=== PATIENT | female | born 1990 | race Caucasian/White ===

== ENCOUNTER 2018-11-18 20:57 | Emergency (ER) | payer OTHER ==
[2018-11-18 21:02] VITALS: BP 109/51; PULSE 69; TEMP 98.4; BMI 26.5
--- NOTE | 2018-11-18 21:44 | PDOC ---
History of Present Illness - General Chief Complaint: Urinary Problem Stated Complaint: UTI Time Seen by Provider: 11/18/18 21:10 - History of Present Illness Initial Comments: 11/18/18 21:43 28-year-old female with dysuria times one week no systemic symptoms Past History - Past Medical History Allergies/Adverse Reactions: Allergies Allergy/AdvReac Type Severity Reaction Status Date / Time No Known Allergies Allergy Verified 11/18/18 21:02 Home Medications: Ambulatory Orders Metronidazole [Flagyl] 500 mg PO BID #14 tablet 08/16/14 Metronidazole [Flagyl] 500 mg PO BID #14 tablet 08/16/14 Ondansetron [Zofran Odt -] 4 mg SL TID #10 od.tablet 08/16/14 Cephalexin [Keflex] 500 mg PO TID 5 Days #15 capsule 11/18/18 COPD: No - Suicide/Smoking/Psychosocial Hx Smoking History: Never smoked Hx Alcohol Use: No Drug/Substance Use Hx: No Substance Use Type: None Review of Systems - Review of Systems Constitutional: No: Fever : Yes: Dysuria *Physical Exam - Vital Signs Last Vital Signs Temp Pulse Resp BP Pulse Ox 98.4 F 69 18 109/51 L 99 11/18/18 20:59 11/18/18 20:59 11/18/18 20:59 11/18/18 20:59 11/18/18 20:59 - Physical Exam Comments: 11/18/18 21:43 HEAD: NC/AT EYES: Conjuntiva clear MS: Full ROM in all joints without edema NEUROLOGIC: No gross sensory or motor deficits, NVID SKIN: Normal color and temperature no lesions or rashes Medical Decision Making - Medical Decision Making 11/18/18 21:59 keflex for UTI *DC/Admit/Observation/Transfer Diagnosis at time of Disposition: UTI (urinary tract infection) - Discharge Dispostion Disposition: HOME Condition at time of disposition: Stable Decision to Admit order: No - Prescriptions Prescriptions: Cephalexin [Keflex] 500 mg PO TID 5 Days #15 capsule - Referrals Referrals: Adis Li MD [Staff Physician] - - Patient Instructions Printed Discharge Instructions: Urinary Tract Infection, DI for Urinary Tract Infection (UTI) Additional Instructions: Return to the emergency room for worsening symptoms. Please take the antibiotics as directed. Follow-up with her - Post Discharge Activity
[2018-11-18 21:52] LABS: EPI CELLS 5.7 /HPF (0-5/HPF); HYALINE CASTS 21 /lpf (0-8); URINE APPEARANCE CLOUDY; URINE BACTERIA 145.5 /hpf (NEGATIVE); URINE BILIRUBIN NEGATIVE (NEGATIVE); URINE COLOR YELLOW; URINE GLUCOSE (UA) NEGATIVE (NEGATIVE); URINE KETONE NEGATIVE (NEGATIVE); URINE LEUK ESTERASE TRACE (NEGATIVE); URINE NITRITE NEGATIVE (NEGATIVE); URINE PROTEIN TRACE (NEGATIVE); URINE WBC 27 /hpf (0-5)
[2018-11-18 21:53] LABS: HCG,QUALITATIVE URINE Negative
[2018-11-18 23:20] LABS: URINE RBC 13.3 /hpf (0-4)
[2018-11-21] MEDS ORDERED: FUROSEMIDE 40 MG/4 ML INJECTABLE VIAL ONE (13:13)
== END 2018-11-18 22:09 | disposition home or self-care (01) ==
LOC: JERFT 20:57
DX: N39.0 Urinary tract infection, site not specified (principal)
CPT/HCPCS: 81003; 84703; 87086; 99281-25

== ENCOUNTER 2020-11-23 21:30 | Emergency (ER) | payer OTHER ==
[2020-11-23 21:35] VITALS: BP 120/62; PULSE 88; TEMP 97.8; BMI 24.7
[2020-11-23] MEDS ORDERED: ERYTHROMYCIN 0.5% OPHTHALMIC OINTMENT 3.5 GM TUBE ONE (22:13)
[2020-11-23] MEDS ORDERED: FLUORESCEIN NA 1 EA STRIP ONE (22:13)
[2020-11-23] MEDS ORDERED: TETRACAINE 0.5% OPHTH SOLN 2 ML BOTTLE ONE (22:13)
== END 2020-11-23 23:07 | disposition home or self-care (01) ==
LOC: JER 21:30
DX: H57.13 Ocular pain, bilateral (principal); Z77.29 Contact with and (suspected) exposure to other hazardous substances
CPT/HCPCS: 99283-25

== ENCOUNTER 2021-04-17 06:23 | Emergency (ER) | payer OTHER ==
[2021-04-17 06:59] VITALS: BP 126/79; PULSE 86; TEMP 97.6; BMI 24.5
== END 2021-04-17 09:05 | disposition home or self-care (01) ==
LOC: JER 06:23
DX: H10.32 Unspecified acute conjunctivitis, left eye (principal)
CPT/HCPCS: 99283-25